=== PATIENT | male | born 1985 | race Caucasian/White ===

== ENCOUNTER 2021-03-26 10:25 | Outpatient (CLI) | payer OTHER, SELFPAY | END 2021-03-26 23:59 | disposition short-term general hospital (02) | LOC: MTRAD 10:27 | PROVIDERS: PCP Nurse Practitioner Family; Referring Provider Chiropractor; Visit Provider Chiropractor | DX: M99.01 Segmental and somatic dysfunction of cervical region (principal) | CPT/HCPCS: 72040 ==

== ENCOUNTER 2021-04-06 14:10 | Outpatient (CLI) | payer OTHER, SELFPAY ==
--- NOTE | 2021-04-06 14:13 | CT_ITS ---
STUDY: CT CERVICAL SPINE WITHOUT CONTRAST REASON FOR EXAM: Male, 35 years old. Suspect left posterior arch fx of C1 RADIATION DOSAGE (If Supplied By Facility): CTDIvol = ( 16.10 ) mGy, DLP = ( 428.80 ) mGycm TECHNIQUE: High resolution transaxial imaging was performed without contrast material. Sagittal and coronal images were reconstructed. Individualized dose optimization techniques were used for this CT. COMPARISON: None FINDINGS: Normal craniovertebral junction. Normal anterior atlantoaxial articulation. Normal odontoid process. Normal cervical lordosis. Normal vertebral bodies and posterior osseous elements. C2-3: Normal endplates. Normal disc height and morphology. Normal central canal and intervertebral neuroforamina. The spinous process of the C2 vertebra is bifid. This is a normal anatomical variant. C3-4: Normal endplates. Normal disc height and morphology. Normal central canal and intervertebral neuroforamina. C4-5: Normal endplates. Normal disc height and morphology. Normal central canal and intervertebral neuroforamina. C5-6: Normal endplates. Normal disc height and morphology. Normal central canal and intervertebral neuroforamina. C6-7: Normal endplates. Normal disc height and morphology. Normal central canal and intervertebral neuroforamina. C7-T1: Normal endplates. Normal disc height and morphology. Normal central canal and intervertebral neuroforamina. Normal visualized soft tissue structures. CT/Spine Cervical without Contras IMPRESSION: Normal unenhanced CT examination of the cervical spine. Electronically Signed: Malachi Pineda MD at 14:58 EST ,
== END 2021-04-06 23:59 | disposition short-term general hospital (02) ==
LOC: CT 14:12
PROVIDERS: PCP Nurse Practitioner Family; Referring Provider Chiropractor; Visit Provider Chiropractor
DX: M99.01 Segmental and somatic dysfunction of cervical region (principal)
CPT/HCPCS: 72125

== ENCOUNTER 2021-05-09 11:00 | Outpatient (CLI) | payer OTHER, SELFPAY ==
--- NOTE | 2021-05-09 11:02 | MRI_ITS ---
STUDY: MRI BRAIN WITHOUT CONTRAST REASON FOR EXAM: Male, 35 years old. numbness and tingling in temporal region TECHNIQUE: Standardized multiplanar fat and water weighted pulse sequences were obtained. Technologist Notes patient refused contrast,, head trauma 2001, laceration COMPARISON: None. FINDINGS: Normal size of the ventricles and extra-axial spaces for the patient''s age. Normal white matter tracts of the supratentorial brain. There is no evidence for recent intracranial ischemia or other cause of cytotoxic edema on diffusion weighted imaging (DWI). Normal T2* images of the brain without demonstrated susceptibility artifact. There is no demonstrated hemosiderin stain. Normal bilateral frontal poles, and orbital frontal and gyrus recti of the frontal lobes. Normal bilateral temporal tips of the temporal lobes. There are no white matter shear injuries (diffuse axonal injuries). There are no parenchymal hemorrhages or hematomas. There are no findings to suggest prior closed head parenchymal injury of the brain. No visualized demyelinating plaques or vacuoles. Normal bilateral basal ganglia. Normal thalami. There is no extra-axial fluid accumulation. Normal flow voids within the major intracranial circulation suggesting patency by spin echo criteria. Normal sella turcica, pituitary gland, infundibular stalk, optic chiasm and hypothalamus. Normal tectal plate and pineal gland. Normal midbrain, franky and medulla. Normal cerebellum. Normal basal cisterns. Normal bilateral temporal bones. Normal bilateral internal auditory canals. No demonstrated orbital abnormality, within the constraints of a routine brain study. Normal visualized paranasal sinuses. Normal calvarium and skull base. Normal visualized soft tissue structures. Normal visualized upper cervical spine. MRI/Brain without Contrast IMPRESSION: Normal unenhanced MRI of the brain. Electronically Signed: Sam Christiansen MD at 15:19 EST ,
== END 2021-05-09 23:59 | disposition home or self-care (01) ==
PROVIDERS: PCP Nurse Practitioner Family; Visit Provider Chiropractor
DX: R20.0 Anesthesia of skin (principal)
CPT/HCPCS: 70551

== ENCOUNTER → 2022-03-12 | Outpatient (CLI) | payer OTHER, SELFPAY ==
[2022-03-12 09:28] LABS: Erythrocyte Sedimentation Rate 10 mm/hr (0-20)
[2022-03-12 09:53] LABS: ALB/GLOB Ratio 1.1 RATIO (0.9-2.4); AST(SGOT) 24 U/L (15-37); Alanine Aminotransfer ALT/SGPT 34 U/L (16-61); Albumin, Serum 4.4 g/dL (3.2-5.0); Alkaline Phosphatase 86 U/L (45-117); Anion Gap 8 (5-15); BUN 16 mg/dL (7-18); BUN/Creat Ratio 16.1 RATIO (10-20); CRP < 2.90 mg/L (0.0-3.0); Calcium,Total 9.7 mg/dL (8.5-10.1); Chloride 102 mmol/L (98-107); Creatinine, Serum 0.99 mg/dL (0.70-1.30); EST Glomerular Filtration Rate 90 mL/min (>60); Est Glom Filt Rate - Afr Amer 109 mL/min (>60); Globulin 3.9 g/dL (2.2-4.2); Glucose 99 mg/dL (74-106); Potassium 3.8 mmol/L (3.5-5.1); Protein, Total 8.3 g/dL (6.4-8.2); Sodium Level 139 mmol/L (136-145)
[2022-03-13 15:08] LABS: Endomysial Antibody IgA Negative (Negative)
[2022-03-13 19:22] LABS: Immunoglobulin A 203 mg/dL (90-386); t-Transglutaminase IgA <2 U/mL (0-3)
[2022-03-15 05:07] LABS: Anti-Centromere B Ab <0.2 AI (0.0-0.9); Anti-Chromatin <0.2 AI (0.0-0.9); Anti-Jo <0.2 AI (0.0-0.9); Anti-Scleroderma-70 AB <0.2 AI (0.0-0.9); Beef <0.10 kU/L (Class 0); Corn <0.10 kU/L (Class 0); Egg, Whole 0.23 kU/L (Class 0/I); Milk (Cow) 0.11 kU/L (Class 0/I); Peanut <0.10 kU/L (Class 0); Pork <0.10 kU/L (Class 0); RNP Ab <0.2 AI (0.0-0.9); SJOGREN'S Anti-SS-A test < 0.2 AI (0.0-0.9); SJOGREN'S Anti-SS-B test < 0.2 AI (0.0-0.9); Smith Ab <0.2 AI (0.0-0.9); Soybean <0.10 kU/L (Class 0)
[2022-03-15 11:08] LABS: Albumin 4.6 g/dL (2.9-4.4); Alpha-1-Globulins 0.3 g/dL (0.0-0.4); Alpha-2-Globulins 0.7 g/dL (0.4-1.0); Cytoplasmic Ab (C-ANCA) <1:20 titer (Neg:<1:20); Gamma Globulin 1.2 g/dL (0.4-1.8); Immunoglobulin A 206 mg/dL (90-386); Immunoglobulin G 1235 mg/dL (603-1613); Immunoglobulin M 86 mg/dL (20-172); PROEL- TOTAL PROTEIN 7.9 g/dL (6.0-8.5)
[2022-03-15 19:23] LABS: Anti-dsDNA Ab <1 IU/mL (0-9); Chocolate <0.10 kU/L (Class 0)
[2022-03-15 19:27] LABS: Immunoglobulin E 63 IU/mL (6-495); Perinuclear Ab (P-ANCA) <1:20 titer (Neg:<1:20)
[2022-03-15 20:18] LABS: H. PYLORI STOOL AG Negative (Negative); Pancreatic Elastase, Fecal 192 (>200)
[2022-03-16 10:25] LABS: Calprotectin, Stool <16 ug/g (0-120); Fats, Neutral Increased (.); Fats, Total Increased (.)
== END | disposition home or self-care (01) ==
PROVIDERS: PCP Nurse Practitioner Family; Referring Provider Internal Medicine Gastroenterology; Visit Provider Internal Medicine Gastroenterology
DX: K58.9 Irritable bowel syndrome, unspecified (principal); R10.9 Unspecified abdominal pain; R19.4 Change in bowel habit
CPT/HCPCS: 36415; 80053; 82274; 82653; 82705; 82784; 82785; 83516; 83630; 83993; 84165; 85652; 86003; 86005; 86140; 86225; 86235; 86255; 86256; 86334; 87177; 87209; 87329; 87338; 87506

== ENCOUNTER → 2022-12-03 | Outpatient (CLI) | payer OTHER, SELFPAY ==
[2022-12-03 10:06] LABS: Erythrocyte Sedimentation Rate < 1 mm/hr (0-20)
[2022-12-03 10:37] LABS: CRP < 2.90 mg/L (0.0-3.0)
== END | disposition home or self-care (01) ==
LOC: LAB 09:32
PROVIDERS: PCP Nurse Practitioner Family; Referring Provider Internal Medicine Gastroenterology; Visit Provider Internal Medicine Gastroenterology
DX: K86.81 Exocrine pancreatic insufficiency (principal); Z91.018 Allergy to other foods
CPT/HCPCS: 36415; 85652; 86140